=== PATIENT | male | born 1960 | race Caucasian/White ===

== ENCOUNTER → 2020-08-18 | Outpatient (CLI) | payer MEDICARE, MEDICAID ==
[~2020-08-18] MED LIST: METHACHOLINE KIT (J7674) INH ONE
--- NOTE | 2020-08-18 10:25 | PFTRPT ---
Site: [facility], [address] [place] [address], [address] ID: [id number] Name: JOÃO TYLER Visit Date: 08/18/2020 Second ID: [id number] Referring Doctor: eLnny Yip MD Reviewing Doctor: Lenny Yip MD Assembly Press Operator: Sánchez SNOW RRT Age: 60 : 1960 Sex: Male Race: Height: 66.00 Inches Weight: 197.00 Lbs BSA: 1.99 Order IDs: [id number] Requested Test(s): <RESP-PFT.PFT> Diagnosis: R06.02 test meet the ATS standards for acceptability and repeatability. Review Status: Not Reviewed Pre-Bronch Post-Bronch Pred Actual %Pred Actual %Chng SPIROMETRY FVC (L) 4.03 3.68 91 FEV1 (L) 3.03 3.03 100 FEV1/FVC (%) 75 82 109 FEF 25% (L/sec) 7.17 8.52 118 FEF 50% (L/sec) 4.69 4.51 96 FEF 75% (L/sec) 1.33 1.04 78 FEF 25-75% (L/sec) 2.48 3.12 125 FEF Max (L/sec) 8.15 9.16 112 FIVC (L) 3.81 FIF 50% (L/sec) 4.65 6.60 141 FIF Max (L/sec) 6.71 MVV (L/min) 124 130 105 Expiratory Time (sec) 6.43 Back Extrap Vol (L) 0.17 Time To FEFmax (sec) 0.100 LUNG VOLUMES SVC (L) 4.11 3.94 95 IC (L) 3.00 3.12 104 ERV (L) 1.11 0.82 73 TGV (L) 3.19 3.22 100 RV (Pleth) (L) 2.08 2.40 115 TLC (Pleth) (L) 6.19 6.34 102 RV/TLC (Pleth) (%) 33 38 114 DIFFUSION DLCOunc (ml/min/mmHg) 26.18 24.06 91 DLCOcor (ml/min/mmHg) 26.18 23.31 89 DL/VA (ml/min/mmHg/L) 4.23 4.24 100 VA (L) 6.19 5.50 88 BHT (sec) 9.89 IVC (L) 3.71 TLC (SB) (L) 5.65 AIRWAYS RESISTANCE Raw (cmH2O/L/s) 1.45 1.10 75 Gaw (L/s/cmH2O) 1.03 0.93 89 sRaw (cmH2O*s) 4.76 3.69 77 sGaw (1/cmH2O*s) 0.20 0.28 138 BLOOD GASES Hgb (gm/dL) 15.8
--- NOTE | 2020-08-18 11:03 | PFTRPT ---
Site: [facility], [address] [place], [address] ID: [id number] Name: JOÃO TYLER Visit Date: 08/18/2020 Second ID: [id number] Referring Doctor: Lenny Yip MD Reviewing Doctor: Lenny Yip MD Life Insurance Specialist: Sánchez SNOW RRT Age: 60 : 1960 Sex: Male Race: Height: 66.00 Inches Weight: 197.00 Lbs BSA: 1.99 Order IDs: [id number] Requested Test(s): <RESP-PFT.METH CHAL> Diagnosis: R06.02 of albuterol for post bronchodilator. Review Status: Not Reviewed Pre-Bronch Post-Bronch Pred Actual %Pred Actual %Chng SPIROMETRY FVC (L) 4.03 3.71 92 3.49 -5 FEV1 (L) 3.03 2.97 97 2.81 -5 FEV1/FVC (%) 75 80 106 81 FEF 25% (L/sec) 7.17 8.64 120 8.13 -5 FEF 50% (L/sec) 4.69 4.73 100 3.49 -26 FEF 75% (L/sec) 1.33 0.83 62 0.67 -19 FEF 25-75% (L/sec) 2.48 2.90 116 2.18 -24 FEF Max (L/sec) 8.15 9.05 111 8.31 -8 FIVC (L) 3.69 3.51 -4 FIF 50% (L/sec) 4.65 6.86 147 5.76 -15 FIF Max (L/sec) 6.95 6.04 -13 Expiratory Time (sec) 5.95 6.55 10 Back Extrap Vol (L) 0.13 0.15 16 Time To FEFmax (sec) 0.080 0.092 14
== END ==
LOC: M CARPUL 09:38
PROVIDERS: ATTEND Internal Medicine Pulmonary Disease
DX: R06.02 Shortness of breath (principal)
CPT/HCPCS: 88738; 94010; 94070; 94726; 94729; 95070; J7674

== ENCOUNTER → 2021-07-10 | Outpatient (REF) | payer MEDICARE, MEDICAID ==
[~2021-07-10] MED LIST changes: +ALBU8.5H INH; +AMLO1TAB24 PO; +ESOM40CA35 PO; +FLUTISP; +IBUP80TA PO; +IRBE75TA4 PO; -METHACHOLINE KIT (J7674) INH ONE; +TAMS1CAP17 PO; +VITMTA PO
[2021-07-10 14:16] LABS: APPEARANCE, URINE CLEAR (CLEAR); BACTERIA, URINE AUTO NEGATIVE (NEGATIVE); BILIRUBIN, URINE AUTO NEGATIVE (NEGATIVE); BLOOD, URINE BLOOD NEGATIVE (NEGATIVE); COLOR, URINE YELLOW (YELLOW); GLUCOSE, URINE (UA) AUTO NEGATIVE (NEGATIVE); KETONE, URINE AUTO NEGATIVE (NEGATIVE); LEUKOCYTE ESTERASE, URINE AUTO NEGATIVE (NEGATIVE); NITRITE, URINE AUTO NEGATIVE (NEGATIVE); PROTEIN, URINE AUTO NEGATIVE (NEGATIVE); RBC, URINE AUTO 0 /HPF (0-3); SPECIFIC GRAVITY URINE AUTO 1.008 (1.002-1.035); SQUAMOUS EPITHELIAL CELL UR AU 0 /HPF (0-6); UROBILINOGEN, URINE AUTO 0.2 mg/dL (0.0-2.0); WBC, URINE AUTO 0 /HPF (0-3)
== END ==
LOC: M SMT 13:11
PROVIDERS: ATTEND Nurse Practitioner Women's Health
DX: N40.0 Benign prostatic hyperplasia without lower urinary tract symptoms (principal)

== ENCOUNTER → 2021-08-04 | Outpatient (CLI) | payer MEDICARE, MEDICAID ==
[~2021-08-04] MED LIST changes: +ISOVUE-370 76% 100ML VIAL ONE; +PROHANCE 279.3MG/ML 15ML VIAL ONE
== END ==
LOC: M PLAIMG 13:49
PROVIDERS: ATTEND Internal Medicine Hematology & Oncology
DX: E83.118 Other hemochromatosis (principal)
CPT/HCPCS: 74183; A9576; Q9967

== ENCOUNTER → 2021-09-04 | Outpatient (CLI) | payer MEDICARE, MEDICAID ==
[~2021-09-04] MED LIST changes: +COQ-100C5 PO; -ISOVUE-370 76% 100ML VIAL ONE; -PROHANCE 279.3MG/ML 15ML VIAL ONE
== END ==
LOC: M RAD 08:16
PROVIDERS: ATTEND Internal Medicine Pulmonary Disease
DX: Z12.2 Encounter for screening for malignant neoplasm of respiratory organs (principal); Z87.891 Personal history of nicotine dependence

== ENCOUNTER 2022-09-06 11:41 | Emergency (ER) | payer MEDICARE, MEDICAID ==
[~2022-09-06] VITALS: Ht 167.6 cm; Wt 95.6 kg
[~2022-09-06 11:41] MED LIST changes: +FLUT50SP17; -FLUTISP; +ROSU20TA5; +TIZA2TA
[2022-09-06] MEDS ORDERED: MORPHINE 4 MG/ML 1ML VIAL IV ONE (12:40)
[2022-09-06] MEDS ORDERED: NS 1,000 ML IV ONE (12:40)
[2022-09-06] MEDS ORDERED: ONDANSETRON 4MG 2ML VIAL IV ONE (12:40)
[2022-09-06 13:26] LABS: BASO % 0.8 % (0.0-1.0); EOS # 0.1 10^3/uL (0.0-0.5); HEMOGLOBIN 14.2 g/dl (13.5-17.5); LYMPH # 1.4 10^3/uL (1.5-5.0); MEAN CORPUSCULAR HEMOGLOBIN 31.1 pg (27.0-33.0); MEAN CORPUSCULAR HGB CONC 33.8 g/dl (32.0-36.5); MEAN CORPUSCULAR VOLUME 92.1 fl (80.0-96.0); MONO # 0.4 10^3/uL (0.0-0.8); MONO % 8.4 % (2.0-8.0); NEUTROPHILS # 3.3 10^3/uL (1.5-8.5); NEUTROPHILS % 62.4 % (36.0-66.0); PLATELET COUNT, AUTOMATED 199 10^3/uL (150-450); RED BLOOD COUNT 4.56 10^6/uL (4.30-6.10); WHITE BLOOD COUNT 5.3 10^3/uL (4.0-10.0)
[2022-09-06 13:47] LABS: INR 1.02; PROTHROMBIN TIME 13.6 SECONDS (12.5-14.5)
[2022-09-06 13:48] LABS: PARTIAL THROMBOPLASTIN TIME 27.4 SECONDS (24.8-34.2)
[2022-09-06 13:49] LABS: CK-MB VALUE MASS < 1.0 NG/ML (<3.6); LIPASE 22 U/L (12-53)
[2022-09-06 13:51] LABS: ALBUMIN 4.1 G/DL (3.2-5.2); ALKALINE PHOSPHATASE 94 U/L (46-116); ALT/SGPT 30 U/L (7.0-40); AST/SGOT < 8 U/L (<34); BILIRUBIN,DIRECT 0.3 MG/DL (<0.4); BILIRUBIN,TOTAL 0.9 MG/DL (0.3-1.2); TOTAL PROTEIN 6.8 G/DL (5.7-8.2)
[2022-09-06] MEDS ORDERED: ISOVUE-370 76% 100ML VIAL As Ordered ONE (14:24)
[2022-09-06 15:00] LABS: CPK CREATINE PHOSPHOKINASE 115 U/L (46-171); MB/CK RELATIVE INDEX 0.86 (< OR =4)
[2022-09-06 16:10] VITALS: BP 143/83
== END 2022-09-06 16:12 | disposition home or self-care (01) ==
LOC: M ED 11:41
DX: K80.50 Calculus of bile duct without cholangitis or cholecystitis without obstruction (principal); N28.1 Cyst of kidney, acquired; I44.7 Left bundle-branch block, unspecified; I10 Essential (primary) hypertension; J44.9 Chronic obstructive pulmonary disease, unspecified; Z88.6 Allergy status to analgesic agent; Z88.5 Allergy status to narcotic agent; Z88.8 Allergy status to other drugs, medicaments and biological substances; Z79.899 Other long term (current) drug therapy
CPT/HCPCS: 71046; 74177; 76705; 80047; 80076; 81001; 82550; 82553; 83605; 83690; 84484; 85025; 85610; 85730; 93005; 96361; 96374; 96375; 99284; J2405; Q9967

== ENCOUNTER → 2022-11-16 | Outpatient (CLI) | payer MEDICARE, MEDICAID ==
[~2022-11-16] MED LIST changes: -ROSU20TA5; +ROSU20TA61
== END ==
LOC: M RAD 09:41
PROVIDERS: ATTEND Internal Medicine Pulmonary Disease
DX: F17.218 Nicotine dependence, cigarettes, with other nicotine-induced disorders (principal)

== ENCOUNTER → 2023-01-23 | Outpatient (CLI) | payer MEDICARE, MEDICAID | LOC: M SOG 07:49 | PROVIDERS: ATTEND Orthopaedic Surgery | DX: M25.512 Pain in left shoulder (principal) ==

== ENCOUNTER 2023-06-07 10:31 | Emergency (ER) | payer MEDICARE, MEDICAID ==
[~2023-06-07] VITALS: Ht 165.1 cm; Wt 88.5 kg
[~2023-06-07 10:31] MED LIST changes: -FLUT50SP17; +FLUTISP
[2023-06-07] MEDS ORDERED: methocarbamoL 500 MG TAB PO ONE (11:50)
[2023-06-07] MEDS ORDERED: LIDOCAINE 5% (LIDODERM) PATCH TD ONE (11:50)
[2023-06-07] MEDS ORDERED: KETOROLAC 30 MG/ML 1ML VIAL IM ONE (11:50)
[2023-06-07] MEDS ORDERED: predniSONE 20 MG TAB PO ONE (11:50)
[2023-06-07] MEDS ORDERED: IBUP-1022 PO (13:14)
[2023-06-07] MEDS ORDERED: PRED20TA PO (13:14)
[2023-06-07] MEDS ORDERED: METH-1164 PO (13:14)
[2023-06-07 13:40] VITALS: BP 135/71; TEMP 97.7; O2SAT 97
== END 2023-06-07 13:42 | disposition home or self-care (01) ==
LOC: M ED 10:31
DX: M54.31 Sciatica, right side (principal); M54.50 Low back pain, unspecified; J44.9 Chronic obstructive pulmonary disease, unspecified; I10 Essential (primary) hypertension; Z87.891 Personal history of nicotine dependence; Z88.6 Allergy status to analgesic agent; Z88.5 Allergy status to narcotic agent; Z79.51 Long term (current) use of inhaled steroids; Z79.899 Other long term (current) drug therapy; Z79.83 Long term (current) use of bisphosphonates; Z79.1 Long term (current) use of non-steroidal anti-inflammatories (NSAID); Z79.02 Long term (current) use of antithrombotics/antiplatelets; Z79.810 Long term (current) use of selective estrogen receptor modulators (SERMs)
CPT/HCPCS: 72110; 96372; 99283; J1885; J7512

== ENCOUNTER → 2023-06-12 | Outpatient (CLI) | payer MEDICARE, MEDICAID ==
[~2023-06-12] MED LIST changes: +IBUP-1022 PO; +METH-1164 PO; +PRED20TA PO
== END ==
LOC: M RAD 09:10
PROVIDERS: ATTEND Chiropractor
DX: M99.01 Segmental and somatic dysfunction of cervical region (principal); M50.33 Other cervical disc degeneration, cervicothoracic region; M99.03 Segmental and somatic dysfunction of lumbar region; M54.41 Lumbago with sciatica, right side; M99.02 Segmental and somatic dysfunction of thoracic region; M51.34 Other intervertebral disc degeneration, thoracic region

== ENCOUNTER → 2023-06-25 | Outpatient (CLI) | payer MEDICARE, MEDICAID ==
[~2023-06-25] MED LIST changes: +IRBE75TA11 PO; -IRBE75TA4 PO
== END ==
LOC: M SOG 07:57
PROVIDERS: ATTEND Physician Assistant
DX: M25.561 Pain in right knee (principal)

== ENCOUNTER → 2023-07-05 | Outpatient (CLI) | payer MEDICARE, MEDICAID | LOC: M RAD 11:18 | PROVIDERS: ATTEND Family Medicine | DX: Z13.6 Encounter for screening for cardiovascular disorders (principal); F17.211 Nicotine dependence, cigarettes, in remission ==

== ENCOUNTER → 2023-07-10 | Outpatient (CLI) | payer MEDICARE, MEDICAID | LOC: M PLAIMG 06:40 | PROVIDERS: ATTEND Physician Assistant | DX: M25.561 Pain in right knee (principal) ==

== ENCOUNTER → 2023-07-15 | Outpatient (CLI) | payer MEDICARE, MEDICAID | LOC: M PLAIMG 12:59 | PROVIDERS: ATTEND Family Medicine | DX: I77.819 Aortic ectasia, unspecified site (principal); E83.110 Hereditary hemochromatosis ==

== ENCOUNTER → 2023-09-13 | Outpatient (CLI) | payer MEDICARE, MEDICAID | LOC: M PLARAD 15:11 | PROVIDERS: ATTEND Orthopaedic Surgery | DX: M47.812 Spondylosis without myelopathy or radiculopathy, cervical region (principal); M50.30 Other cervical disc degeneration, unspecified cervical region; M99.71 Connective tissue and disc stenosis of intervertebral foramina of cervical region ==

== ENCOUNTER → 2024-01-02 | Outpatient (CLI) | payer MEDICAID, MEDICARE | LOC: M RAD 15:03 | PROVIDERS: ATTEND Internal Medicine Pulmonary Disease | DX: Z12.2 Encounter for screening for malignant neoplasm of respiratory organs (principal); Z87.891 Personal history of nicotine dependence ==

== ENCOUNTER → 2024-02-12 | Outpatient (REF) | payer MEDICARE, MEDICAID | LOC: M SFHCPLAZ 09:32 | PROVIDERS: ATTEND Physician Assistant Medical | DX: R30.0 Dysuria (principal) ==

== ENCOUNTER → 2024-02-12 | Outpatient (CLI) | payer MEDICARE, MEDICAID | LOC: M PLAIMG 09:55 | PROVIDERS: ATTEND Physician Assistant Medical | DX: N41.0 Acute prostatitis (principal); R10.9 Unspecified abdominal pain ==

== ENCOUNTER → 2024-03-03 | Outpatient (CLI) | payer MEDICARE, MEDICAID ==
[~2024-03-03] MED LIST changes: -ROSU20TA61; +ROSU20TA86
[2024-03-03 15:46] LABS: ALBUMIN 3.9 G/DL (3.2-5.2); ALKALINE PHOSPHATASE 90 U/L (46-116); ALT/SGPT 14 U/L (7.0-40); AST/SGOT < 8 U/L (<34); BILIRUBIN,TOTAL 0.5 MG/DL (0.3-1.2); BLOOD UREA NITROGEN 12 MG/DL (9-23); CALCIUM LEVEL 9.3 MG/DL (8.3-10.6); CARBON DIOXIDE LEVEL 27 MMOL/L (20-31); CHLORIDE LEVEL 105 MMOL/L (98-107); CHOLESTEROL LEVEL 149 MG/DL (<200); CHOLESTEROL RISK RATIO 2.45 (<5); CREATININE FOR GFR 0.77 MG/DL (0.70-1.30); GLOMERULAR FILTRATION RATE > 60.0 (>49); GLUCOSE, FASTING 119 MG/DL (74-106); HDL CHOLESTEROL 60.6 MG/DL (>40); LDL CHOLESTEROL 45.8 MG/DL (<100); NON-HDL-C 88.4 MG/DL; POTASSIUM SERUM 4.1 MMOL/L (3.5-5.1); PSA SCREENING 0.86 NG/ML (< 4.00); SODIUM LEVEL 137 MMOL/L (136-145); TOTAL PROTEIN 6.7 G/DL (5.7-8.2); TRIGLYCERIDES LEVEL 213 MG/DL (<150)
[2024-03-03 16:02] LABS: HEMOGLOBIN A1c 5.6 % (4.0-6.0)
[2024-03-03 18:24] LABS: APPEARANCE, URINE CLEAR (CLEAR); BACTERIA, URINE AUTO NEGATIVE (NEGATIVE); BILIRUBIN, URINE AUTO NEGATIVE (NEGATIVE); BLOOD, URINE BLOOD NEGATIVE (NEGATIVE); COLOR, URINE YELLOW (YELLOW); GLUCOSE, URINE (UA) AUTO NEGATIVE (NEGATIVE); KETONE, URINE AUTO NEGATIVE (NEGATIVE); LEUKOCYTE ESTERASE, URINE AUTO NEGATIVE (NEGATIVE); NITRITE, URINE AUTO NEGATIVE (NEGATIVE); PROTEIN, URINE AUTO NEGATIVE (NEGATIVE); RBC, URINE AUTO 0 /HPF (0-3); SPECIFIC GRAVITY URINE AUTO 1.014 (1.002-1.035); SQUAMOUS EPITHELIAL CELL UR AU 0 /HPF (0-6); UROBILINOGEN, URINE AUTO 0.2 mg/dL (0.0-2.0); WBC, URINE AUTO 0 /HPF (0-3)
== END ==
LOC: M PLALAB 12:52
PROVIDERS: ATTEND Family Medicine
DX: I10 Essential (primary) hypertension (principal); Z12.5 Encounter for screening for malignant neoplasm of prostate
CPT/HCPCS: 36415; 80053; 80061; 81001; 83036; 87086; G0103

== ENCOUNTER → 2025-01-20 | Outpatient (CLI) | payer MEDICARE, MEDICAID ==
[~2025-01-20] MED LIST changes: +AMLO25TA PO; +FINA5TAB2
== END ==
LOC: M SOG 06:49
PROVIDERS: ATTEND Orthopaedic Surgery
DX: M50.30 Other cervical disc degeneration, unspecified cervical region (principal)

== ENCOUNTER → 2025-01-21 | Outpatient (CLI) | payer MEDICARE, MEDICAID ==
[~2025-01-21] MED LIST changes: -IBUP-1022 PO; +IBUP600T42 PO
== END ==
LOC: M PLAIMG 09:26
PROVIDERS: ATTEND Orthopaedic Surgery
DX: M50.21 Other cervical disc displacement, high cervical region (principal); M47.812 Spondylosis without myelopathy or radiculopathy, cervical region; M50.223 Other cervical disc displacement at C6-C7 level; M48.02 Spinal stenosis, cervical region; M46.02 Spinal enthesopathy, cervical region

== ENCOUNTER → 2025-02-04 | Outpatient (CLI) | payer MEDICARE, MEDICAID | LOC: M RAD 12:46 | PROVIDERS: ATTEND Internal Medicine Pulmonary Disease | DX: Z12.2 Encounter for screening for malignant neoplasm of respiratory organs (principal); Z87.891 Personal history of nicotine dependence ==